=== PATIENT | female | born 1995 ===

== ENCOUNTER 2024-08-12 11:25 | Outpatient (REF) | payer MEDICAID, SELFPAY ==
[2024-08-12 14:13] LABS: HCT 40.1 % (36.0-46.0); HGB 13.4 g/dL (11.2-15.7); MCH 29.5 pg (27.0-33.0); MCHC 33.4 % (32.0-36.0); MCV 88 fL (80-95); MPV 10.2 fL (8.0-11.0); Platelet Count 223 10^3/uL (130-400); RBC 4.54 10^6/uL (3.93-5.22); RDW 12.4 % (11.7-14.6); RDW-SD 40.5 fL; WBC 6.91 10^3/uL (4.4-10.8)
[2024-08-12 15:03] LABS: Vitamin D 25 Total 31 ng/mL (30-100)
== END 2024-08-12 11:26 | disposition home or self-care (01) ==
LOC: NCHCN 11:25
PROVIDERS: Visit Provider Internal Medicine
DX: E55.9 Vitamin D deficiency, unspecified (principal); R53.83 Other fatigue
CPT/HCPCS: 82306; 85027

== ENCOUNTER 2025-01-11 13:24 | Outpatient (REF) | payer MEDICAID, SELFPAY ==
[2025-01-11 15:29] LABS: TSH (W/Ref FT4) 1.38 uIU/mL (0.36-3.74)
== END 2025-01-11 13:25 | disposition home or self-care (01) ==
LOC: NCHCN 13:24
PROVIDERS: Visit Provider Internal Medicine
DX: L65.9 Nonscarring hair loss, unspecified (principal)
CPT/HCPCS: 84443